=== PATIENT | male | born 1950 | race Caucasian/White ===

== ENCOUNTER → 2020-03-08 10:29 | Outpatient (CLI) | payer OTHER, SELFPAY ==
[2020-03-09 08:58] LABS: COVID19 Sendout Not Detected (Not Detect)
== END ==
PROVIDERS: Family Provider Nurse Practitioner Family; PCP Nurse Practitioner Family; Visit Provider Physician Assistant
DX: Z11.59 Encounter for screening for other viral diseases (principal)
CPT/HCPCS: 87635

== ENCOUNTER 2020-03-11 12:46 | Day surgery (SDC) | payer OTHER, SELFPAY ==
--- NOTE | 2020-03-11 | PATH_ITS ---
[facility] Accession Number: [id number] . 01 Material submitted: . PART A: colon - ASCENDING COLON POLYP BIOPSY 2MM X4 PART B: colon - SIGMOID COLON POLYP BIOPSY 2MM . 01 Clinical history: . SDC . 02 Diagnosis: A. Ascending Colon Polyp, 2 mm x4, Biopsy: Fragments of sessile serrated adenoma and hyperplastic polyp. Additional levels were examined. . B. Sigmoid Colon, Polyp 2 mm, Biopsy: Hyperplastic polyp. MRV 03/14/2020 1505 Local . 02 Electronically signed: . Medina Machuca MD, Pathologist NPI- [id number] . 01 Gross description: . Part A: ASCENDING COLON POLYP BIOPSY 2MM X4: Received in formalin are 4 fragment(s) of johnson, soft tissue measuring 0.3 x 0.3 x 0.2 cm to 0.2 x 0.1 x 0.2 cm submitted entirely in 1 cassette(s) Part B: SIGMOID COLON POLYP BIOPSY 2MM: Received in formalin is 1 fragment(s) of johnson, soft tissue measuring 0.4 x 0.3 x 0.3 cm submitted entirely in 1 cassette(s) /QBJ 03/12/2020 0706 Local . 02 Pathologist provided ICD-10: D12.6 . 02 CPT . 939517, [id number] Performed at: 01 [facility] [address] [facility], [place], [place] [id number] MD Alban Arzate MD Phone: [phone] Performed at: 02 [facility] [address] [place], [place] [id number] MD Medina Machuca MD Phone: [phone]
--- NOTE | 2020-03-11 11:47 | PM.HP.1 ---
History of Present Illness History of Present Illness Date Patient Seen: 03/11/20 Chief complaint: [facility] Narrative: 69 year old male comes in today for consideration of a screening colonoscopy. Four lifetime colonoscopies, 2008, , 2011, 2016; and one sigmoidoscopy, 2009. 06/24/09: Indicated for screening. Three polyps, cecum x 1 (hyperplastic), sigmoid x2 (small lesion was hyperplastic but large lesion at 35 cm was a tubulovillous adenoma with high-grade dysplasia, 1.5 cm, suspicious for invasion). Diverticulosis. 09/02/2009: Indicated for re-endoscopy with resnare and injection of Aura ink into high-grade lesion at 35 cm. Hepatic flexure polyp x 1, hyperplastic. Sigmoid polyp at 35 cm showed no residual adenomatous tissue or malignancy identified. Rectal polyp was a serrated adenoma. 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 Normal sigmoidoscopy with the exception of diverticulum. Inked area of previous polyp showed no recurrence. 11/09/11: Indicated for previous diagnosis of high-grade dysplastic lesion, 30 cm. Two polyps at 95 cm (hyperplastic). 2 polyps in descending colon (biopsy showed benign colonic mucosa with surface hyperplastic changes). No recurrence of lesion in the inked area. 12/03/2016: Indicated for history of polyps. Proximal right colon, 80 cm x 2 (benign colonic mucosa). 25 cm x 1 (hyperplastic). Rectum x3 (hyperplastic). Previous tattooed area showed no regrowth. Pancolonic diverticulosis, severe left side There have been no lower GI symptoms suggesting disease such as change in bowel habits, bleeding, abdominal pain or anemia. There is a family history of colon cancer in his brother, required partial colon resection. Overall health issues have been stable, including no major cardiac events for at least 6 weeks. PCP: Dr. Patrick Past medical history: Colon polyps Excessive alcohol abuse Hyperlipidemia Arthritis BPH Seasonal allergies Tobacco dependence Past surgical history: Bilateral rotator cuff repair, Colonoscopy x4 Sigmoidoscopy x1 Family history: Noncontributory Social history: , 3rd marriage. Smoker, drinker. Medications: Atorvastatin 10 mg p.o. q.h.s. Multivitamin 1 tab p.o. q.day Allergies: No known drug allergies Patient History Medical History Alcohol use (Acute) Arthritis (Acute) BPH without urinary obstruction (Acute) H/O adenomatous polyp of colon (Acute) Hyperlipidemia (Acute) Seasonal allergies (Acute) Smoker (Acute) Meds Home Medications and Allergies Home Medications Medication Instructions Recorded Confirmed Type multivitamin [Multiple Vitamins] 1 tab PO QDAY #0 12/03/16 History omega 8-lck-zwd-fish oil [Fish Oil] 1,000 mg PO #0 12/03/16 History Allergies Allergy/AdvReac Type Severity Reaction Status Date / Time No Known Drug Allergies Allergy Unknown Unverified 10/27/17 12:58 [NO KNOWN DRUG ALLERGIES] Review of Systems Review of Systems ROS: Yes All systems reviewed with the patient and are negative except as otherwise documented Exam Narrative Exam Narrative: GENERAL: Alert and oriented, appearing stated age and in no acute distress. HEENT: Head normocephalic/atraumatic. Pupils equal, round, and reactive to light and accomodation. Extraocular muscles intact. Tympanic membranes clear. Nasal mucosa moist, septum midline. Oral mucosa moist, no lesions. Neck soft and supple, no lymphadenopathy. LUNGS: Clear to ausculation bilaterally, no wheezes, rhonchi or rales. CV: Normal S1 and S2 with regular rate and rhythm, no audible murmurs, rubs or gallops. ABDOMEN: Soft, non-tender, non-distended, no organomegaly. Positive bowel sounds. EXTREMITIES: No clubbing, cyanosis, or edema. NEURO: Cranial nerves II through XII grossly intact, no focal deficits. PSYCH: Alert and oriented x 3. SKIN: No concerning lesions. Assessment & Plan Assessment & Plan narrative: 1. History of colon polyps 2. Family history of colon cancer 3. Screening for colon cancer 4. Diverticulosis, pancolonic, severe Plan for colonoscopy. The nature and character of the procedure as well as anticipated results were discussed. The possibility of not completing the procedure was also discussed. Possible complications including aspiration pneumonia, bleeding, perforation and reaction to medications either for sedation or preparation and missed lesions were discussed. Questions were answered and proceeding to the colonoscopy was elected. Informed consent signed. I sincerely appreciate the referral allowing me to participate in this patient's care. Please contact me with any questions or concerns.
--- NOTE | 2020-03-11 12:08 | PM.OP.ENDO ---
Operative Date/Time/Diagnoses Date of procedure: 03/11/20 Procedure Notes Procedure in detail: ENDOSCOPIST: Kate Patrick MD Sedation RN: Jony Steiner RN Sedation start time: 1:44 p.m. Sedation end time: 2:06 p.m. PROCEDURE: Colonoscopy with biopsy INDICATIONS: 1. History of colon polyps 2. Family history of colon cancer, brother 3. Screening for colon cancer 4. History of pancolonic diverticulosis, severe left-sided MEDICATION: Levsin 0.125 mg sublingual, incremental doses of Versed and fentanyl until appropriate level sedation achieved. ASA CLASS: 2 CECAL WITHDRAWAL TIME: 15 minutes COMPLICATIONS: None. EXTENT OF PROCEDURE: Cecum. QUALITY OF PREP: Good with portions of liquid stool. PROCEDURE: Prior to insertion of the colonoscope, a digital rectal examination was accomplished with circumferential palpation of the distal rectal mucosa without significant findings being noted. The high-definition pediatric colonoscope was passed into the rectum in the usual fashion and advanced over to the cecum without difficulty. The ileocecal valve, appendiceal stoma, and medial wall all could be inspected and no abnormalities were seen. ASCENDING COLON: As the colonoscope was withdrawn, care was taken to expose and inspect the haustral folds and four, small, 2 mm polyps were seen and removed with cold biopsy forceps, excellent hemostasis. HEPATIC FLEXURE: Normal, no polyps, diverticula or other abnormalities. TRANSVERSE COLON: Normal, no polyps, diverticula or other abnormalities. DESCENDING COLON: Moderate diverticulosis, otherwise, no polyps or other abnormalities. SIGMOID COLON: Moderate diverticulosis. 2 small polyps removed with cold biopsy forceps, 2 mm in size. Previously inked segment at 35 cm was carefully inspected and no recurrence of any polypoid tissue was seen. RECTUM: Normal. J maneuver was produced. There was no significant perianal disease. The J maneuver was broken. The remainder of the rectum was inspected and there was no external hemorrhoid disease. The scope was withdrawn. IMPRESSION: 1. Ascending polyp x4, 2 mm, removed with cold biopsy forceps 2. Sigmoid polyp x2, 2 mm, removed with cold biopsy forceps 3. Previously inked segment at 35 cm showed no recurrence of lesions. 4. Moderate diverticulosis, left-sided PLAN: 1. Follow-up in clinic status post pathology results. The possibility of a missed lesion including a malignancy has been discussed with the patient previously. Potential alarm symptoms have been discussed and should be reported immediately.
[2020-03-11] MEDS: HYOSCYAMINE 0.125 MG TABLET PO (13:09)
[2020-03-11] MEDS: LACTATED RINGERS 1,000 ML 200 ML IV (13:09)
[2020-03-11 13:10] VITALS: BP 132/82; PULSE 84; RESP 14; TEMP 36.6; O2SAT 99
[2020-03-11 13:22] VITALS: BMI 26.2
[2020-03-11] MEDS: fentaNYL 250 MCG/5 ML INJ IV (13:48)
[2020-03-11] MEDS: MIDAZOLAM 5 MG/5 ML VIAL IV (13:49)
[2020-03-11 14:12] VITALS: BP 130/72; PULSE 80; RESP 16; TEMP 36.5; O2SAT 97
[2020-03-11 14:16] VITALS: BP 125/80; PULSE 76; RESP 15; O2SAT 97
[2020-03-11 14:21] VITALS: BP 126/81; PULSE 76; RESP 20; O2SAT 97
--- NOTE | 2020-03-11 14:23 | SUR.PHASEI ---
Stable PACU stay, Dr. Patrick to bedside- spoke with pt.
[2020-03-11 14:26] VITALS: BP 127/77; PULSE 78; RESP 14; TEMP 36.5; O2SAT 97
--- NOTE | 2020-03-11 14:48 | SUR.PHASEII ---
1426 Pt arrived in [facility], to bedside, pt anxious to go home. IV dc'd; clothes given.
== END 2020-03-11 13:40 | disposition home or self-care (01) ==
PROVIDERS: Family Provider Nurse Practitioner Family; PCP Student in an Organized Health Care Education/Training Program; Referring Provider Student in an Organized Health Care Education/Training Program; Visit Provider Student in an Organized Health Care Education/Training Program
PROC: 0DJD8ZZ Inspection of Lower Intestinal Tract, Via Natural or Artificial Opening Endoscopic (ICD-10-PCS; CPT 45378; principal; 2020-03-11 13:45)
DX: Z12.11 Encounter for screening for malignant neoplasm of colon (principal); Z86.010 Personal history of colon polyps; Z80.0 Family history of malignant neoplasm of digestive organs; K57.30 Diverticulosis of large intestine without perforation or abscess without bleeding; D12.2 Benign neoplasm of ascending colon
CPT/HCPCS: 45380; J2250; J3010

== ENCOUNTER → 2020-06-04 11:06 | Outpatient (CLI) | payer OTHER, SELFPAY ==
--- NOTE | 2020-06-04 11:08 | DI.US.S_ITS ---
PROCEDURE: US SCROTUM INDICATIONS: Disorder of male genital organs, unspecified TECHNIQUE: Real-time scanning was performed of the scrotum and testicles, with image documentation. Color and pulse Doppler interrogation was performed of both testicles. COMPARISON: None. FINDINGS: Right: Testicle is normal in size at 2.3 x 3.6 x 5.3 cm, and homogenous in echotexture. Epididymis is normal in overall size and morphology. No hydrocele or varicoceles. Overlying scrotal skin is normal in thickness. A testicular mass is not present. Prominent rete testis, in the normal variant range. Epididymal head cyst on the right measuring 1.4 x 1.4 x 1.9 cm. Left: Testicle is normal in size at 2.2 x 3.0 x 4.9 cm, and homogeneous in echotexture. Epididymis is normal in overall size and morphology. No hydrocele or varicoceles. Overlying scrotal skin is normal in thickness. Prominent rete testis, in the normal variant range. Doppler: Color and pulse Doppler demonstrate normal and symmetric arterial flow in both testicles. Increased blood flow at the scrotal wall, mild in severity, potentially a manifestation of cellulitis. IMPRESSION: A testicular mass is not found. There is a right epididymal head cyst as an incidental finding, which does not appear complex or inflamed. Note is made of mild increased blood flow through the testicular wall bilaterally, nonspecific but potentially a manifestation of mild cellulitis. Please correlate clinically. The noted mild prominence of the rete testis at each testicle is symmetric and in the normal range of variation. Dictated by: Orlin Hoyos M.D. on 06/04/2020 at 13:20 Approved by: Orlin Hoyos M.D. on 06/04/2020 at 13:24
== END ==
PROVIDERS: Family Provider Nurse Practitioner Family; PCP Student in an Organized Health Care Education/Training Program; Referring Provider Student in an Organized Health Care Education/Training Program; Visit Provider Student in an Organized Health Care Education/Training Program
DX: N50.3 Cyst of epididymis (principal); N50.9 Disorder of male genital organs, unspecified
CPT/HCPCS: 76870

== ENCOUNTER → 2021-03-17 12:57 | Outpatient (CLI) | payer OTHER, SELFPAY ==
--- NOTE | 2021-03-17 | DI.US.S_ITS ---
PROCEDURE: US ABD AORTA ANEURYSM SCREEN INDICATIONS: HISTORY OF SMOKING TECHNIQUE: Real time scanning was performed of the aorta and iliac arteries, with image documentation. COMPARISON: None. FINDINGS: This study is limited by bowel gas. Aorta: Proximal aortic diameter measures 2.9 cm. Mid-aorta measures 2.6 cm. Distal aortic diameter is 2.1 cm. Iliac arteries: Right common iliac artery measures 1.8 cm. Left common iliac artery measures 1.7 cm. IMPRESSION: Negative for aneurysm. Dictated by: Alessandro De Anda M.D. on 03/17/2021 at 13:37 Approved by: Alessandro De Anda M.D. on 03/17/2021 at 13:38
== END ==
PROVIDERS: Family Provider Nurse Practitioner Family; PCP Student in an Organized Health Care Education/Training Program; Referring Provider Student in an Organized Health Care Education/Training Program; Visit Provider Student in an Organized Health Care Education/Training Program
DX: Z13.6 Encounter for screening for cardiovascular disorders (principal); Z87.891 Personal history of nicotine dependence
CPT/HCPCS: 76706

== ENCOUNTER → 2024-08-25 13:33 | Outpatient (CLI) | payer OTHER, SELFPAY ==
--- NOTE | 2024-08-25 13:35 | EKG_ITS ---
[id number] [place] [address] Test Date: 2024-08-25 Pat Name: Cresencio Ho Department: [facility] Room: Gender: Male Courier Driver: SUSI : 1950 Requested By: Order Number: [id number] Reading MD: Macario Jiménez Measurements Intervals [place] Rate: 78 P: 53 [place]: 140 QRS: 3 QRSD: 102 T: 46 QT: 384 QTc: 437 Interpretive Statements Sinus rhythm with occasional premature ventricular complexes Nonspecific ST abnormality Electronically Signed On 08-25-2024 16:25:30 PST by Macario Jiménez
== END ==
PROVIDERS: Family Provider Nurse Practitioner Family; PCP Family Medicine; Referring Provider Family Medicine; Visit Provider Family Medicine
DX: R00.2 Palpitations (principal)
CPT/HCPCS: 93005

== ENCOUNTER → 2024-10-04 08:03 | Outpatient (CLI) | payer OTHER, SELFPAY ==
[2024-10-04 09:01] LABS: Add Manual Diff / Slide Review NO; Basophils Absolute Auto 0 /uL (0-100); Basophils Percent Auto 0.3 % (0-2); Eosinophils Absolute Auto 200 /uL (0-450); Eosinophils Percent Auto 2.3 % (2-4); Hematocrit 45.8 % (41-53); Hemoglobin 15.4 g/dL (13.5-17.5); Lymphocytes Absolute Auto 2400 /uL (1100-4500); Mean Corpuscular HGB Conc 33.5 % (30-36); Mean Corpuscular Hemoglobin 33.5 PG (26-34); Mean Corpuscular Volume 100.2 fL (80-100); Monocytes Absolute Auto 800 /uL (0-900); Monocytes Percent Auto 12.1 % (3-14); Neutrophils Absolute Auto 3400 /uL (1500-7000); Neutrophils Percent Auto 50.3 % (50-75); Platelet Count 219 X10^3/uL (150-400); Red Blood Cell Count 4.58 X10^6/uL (4.5-5.9); Red Cell Distribution Width 13.2 % (11.6-14.8); White Blood Cell Count 6.8 X10^3/uL (4.5-11.0)
[2024-10-04 09:19] LABS: Alanine Aminotransferase 25 IU/L (<50); Albumin 4.5 g/dL (3.5-5.0); Alkaline Phosphatase 71 U/L (38-126); Aspartate Aminotransferase 27 IU/L (17-59); BUN Creatinine Ratio 18.2 (6-22); Bilirubin Total 0.9 mg/dL (0.2-1.3); Blood Urea Nitrogen 14 mg/dL (9-20); Calcium 9.3 mg/dL (8.4-10.2); Carbon Dioxide 27 mmol/L (22-32); Chloride 102 mmol/L (98-107); Cholesterol 181 mg/dL (140-199); Estimated Glomerular Filt Rate > 60 mL/min (>60); Globulin 2.3 g/dL (1.7-4.1); Glucose 112 mg/dL (80-110); HDL Cholesterol 71 mg/dL (40-60); HEMOLYSIS < 15 (0-50); LDL Cholesterol Calculated 93 mg/dL (<100); Potassium 4.5 mmol/L (3.4-5.1); Sodium 137 mmol/L (137-145); Total Protein 6.8 g/dL (6.3-8.2); Triglycerides 84 mg/dL (35-150)
[2024-10-04 09:50] LABS: TSH w/ Reflex to FT4 2.43 uIU/mL (0.47-4.68)
[2024-10-04 10:00] LABS: HIV 1 & 2 Ab/Ag 4th Gen Combo NEGATIVE (NEGATIVE)
== END ==
PROVIDERS: Family Provider Nurse Practitioner Family; PCP Family Medicine; Referring Provider Family Medicine; Visit Provider Family Medicine
DX: Z13.6 Encounter for screening for cardiovascular disorders (principal); E78.5 Hyperlipidemia, unspecified; Z11.3 Encounter for screening for infections with a predominantly sexual mode of transmission; R53.83 Other fatigue
CPT/HCPCS: 36415; 80053; 80061; 84443; 85025; 87389; 87522

== ENCOUNTER → 2024-10-26 13:57 | Outpatient (CLI) | payer OTHER, SELFPAY ==
--- NOTE | 2024-10-26 13:58 | DI.CT.S_ITS ---
PROCEDURE: CT LUNG LOW DOSE SCREENING INDICATIONS: Tobacco abuse TECHNIQUE: Noncontrast 2.0-2.5 mm thick sections acquired from the pulmonary apices to the posterior costophrenic angles. 7 mm thick axial MIP, and 5 mm coronal and sagittal reformats were then acquired. For radiation dose reduction, the following was used: automated exposure control, adjustment of mA and/or kV according to patient size. COMPARISON: None. FINDINGS: Image quality: Diagnostic. Lower Neck: No enlarged lymph nodes. Thyroid: No thyroid nodules which require sonographic follow up, per consensus guidelines. Axillae: No enlarged lymph nodes. Chest Wall: Unremarkable. Bones: No aggressive appearing bony lesions. Lungs and Pleura: No pneumothorax or pleural effusions. No consolidations. Mild centrilobular emphysema. Linear scarring/atelectasis in anterior aspect of bilateral lower lung zones are seen. 2-3 mm ground-glass density nodule is seen in anterior right upper lobe series 3, image 158. 3 mm solid nodule in posterior aspect of right upper lobe along minor fissure series 3, image 98. 3 mm solid nodule is seen in lateral aspect of left upper lobe series 3, image 77. Heart: Heart size is normal. No pericardial effusion. Thoracic Vessels: The aorta and pulmonary arteries demonstrate normal size. Mild single vessel coronary artery atherosclerotic calcifications. Mediastinum and Dori: No enlarged lymph nodes. Esophagus: No wall thickening. No hiatal hernia. Upper Abdomen: Visualized upper abdomen solid organs and bowel loops appear normal. IMPRESSION: 1. Tiny 2-3 mm bilateral pulmonary nodules as described above. No suspicious pulmonary nodules. 2. Bibasilar scarring/atelectasis. Mild centrilobular emphysema. LUNG-RADS 2; continued annual screening, if eligible. Clinically Significant Non-pulmonary Findings: Mild single-vessel coronary artery atherosclerotic calcifications. No mediastinal or hilar lymphadenopathy. Dictated by: Ayan Chase M.D. on 10/26/2024 at 18:24 Approved by: Ayan Chase M.D. on 10/26/2024 at 18:29
== END ==
PROVIDERS: Family Provider Nurse Practitioner Family; PCP Family Medicine; Referring Provider Family Medicine; Visit Provider Family Medicine
DX: Z12.2 Encounter for screening for malignant neoplasm of respiratory organs (principal); Z72.0 Tobacco use
CPT/HCPCS: 71271